=== PATIENT | female | born 1950 | race Caucasian/White ===

== ENCOUNTER 2017-10-23 21:03 | Emergency (ER) | payer OTHER ==
[~2017-10-23] VITALS: Ht 167.6 cm; Wt 71.3 kg
[2017-10-23 21:13] VITALS: BP 182/77; PULSE 74; RESP 16; TEMP 97.7; O2SAT 96
[2017-10-23 21:34] VITALS: BP 164/76
[2017-10-23] MEDS ORDERED: ORPHENADRINE INJ 60 MG/2 ML AMP IM ONE (22:15)
[2017-10-23] MEDS ORDERED: TRAM50 PO (22:21)
[2017-10-23] MEDS ORDERED: ROBA750T PO (22:21)
[2017-10-23] MEDS ORDERED: MOBI15TA PO (22:21)
--- NOTE | 2017-10-23 22:21 | PD ---
HPI Chief Complaint: Back/ Neck Pain or Injury Time Seen by Provider: 22:10 Travel History International Travel<30 days: No Contact w/Intl Traveler<30days: No Traveled to known affect area: No History of Present Illness HPI 66-year-old female complains of neck pain. Patient states that the neck pain started yesterday. Patient states that she woke up with the pain since yesterday morning. Patient states that the pain is sharp pain started in the left-sided neck with radiation to left shoulder pad area. Patient states that the pain is worse with neck movement. Patient denies any head or neck injury recently. Patient denies any fever chills. Patient denies any focal weakness or numbness of the extremity. Patient states that the pain goes partially relieved with Aleve. Patient denies any history of neck problem in the past. On a scale of 1-10 the pain is a 7. PFSH Past Medical History Medical History: Denies Significant Hx Diminished Hearing: No Immunizations Current: Yes Tetanus Vaccination: > 5 Years Influenza Vaccination: No ?: Not Past Surgical History Appendectomy: Yes Hysterectomy: Yes Social History Alcohol Use: Yes (1 DAILY) Tobacco Use: No Substance Use: No Allergies-Medications (Allergen,Severity, Reaction): Coded Allergies: No Known Allergies (Unverified , 10/23/17) Reported Meds & Prescriptions Reported Meds & Active Scripts Active Robaxin (Methocarbamol) 750 Mg Tab 750 Mg PO QID Mobic (Meloxicam) 15 Mg Tab 15 Mg PO DAILY Ultram (Tramadol HCl) 50 Mg Tab 50 Mg PO Q6H PRN Review of Systems General / Constitutional: No: Fever Eyes: No: Visual changes HENT: Positive: Neck Pain, No: Headaches Cardiovascular: No: Chest Pain or Discomfort Respiratory: No: Shortness of Breath Gastrointestinal: No: Abdominal Pain Genitourinary: No: Dysuria Musculoskeletal: No: Pain Skin: No Rash Neurologic: No: Weakness Psychiatric: No: Depression Endocrine: No: Polydipsia Hematologic/Lymphatic: No: Easy Bruising Physical Exam Narrative GENERAL: Well-nourished, well-developed patient. SKIN: Focused skin assessment warm/dry. HEAD: Normocephalic. EYES: No scleral icterus. No injection or drainage. NECK: Supple, trachea midline. No JVD or lymphadenopathy. Mild tenderness on palpation left paraspinal area cervical spine and left shoulder pad area. No shoulder joint tenderness. No meningismus. No rash noted. CARDIOVASCULAR: Regular rate and rhythm without murmurs, gallops, or rubs. RESPIRATORY: Breath sounds equal bilaterally. No accessory muscle use. GASTROINTESTINAL: Abdomen soft, non-tender, nondistended. MUSCULOSKELETAL: No cyanosis, or edema. BACK: Nontender without obvious deformity. No CVA tenderness. Neurologic exam normal. Data Data Last Documented VS Vital Signs Date Time Temp Pulse Resp B/P (MAP) Pulse Ox O2 Delivery O2 Flow Rate FiO2 10/23/17 21:34 164/76 (105) 10/23/17 21:13 97.7 74 16 96 Orders Orders Orphenadrine Inj (Norflex Inj) (10/23/17 22:15) Spine, Cervical - Ltd (Ap&Lat) (10/23/17 22:14) Tramadol (Ultram) (10/23/17 22:30) MDM Medical Decision Making Medical Screen Exam Complete: Yes Emergency Medical Condition: Yes Interpretation(s) X-ray cervical spine showed DJD changes. Differential Diagnosis Differential diagnosis including muscle spasm, neuralgia, neuropathy, cervical spine fracture, HNP. Narrative Course 66-year-old female with left-sided neck pain and left shoulder pad pain. Nontraumatic. Norflex 60 mg IM. Ultram 50 mg p.o. given. Diagnosis Primary Impression: Cervical strain, acute Qualified Codes: S16.1XXA - Strain of muscle, fascia and tendon at neck level , initial encounter Patient Instructions: General Instructions Additional Instructions: Take medication as needed for pain. Moist heat. Follow-up with personal physician. Return if worse, any rash. Med/Other Pt SpecificInfo: Prescription(s) given Scripts Methocarbamol (Robaxin) 750 Mg Tab 750 MG PO QID for Muscle Spasm, #40 TAB 0 Refills Prov: Yanick Grider MD 10/23/17 Meloxicam (Mobic) 15 Mg Tab 15 MG PO DAILY for Pain, #20 TAB 0 Refills Prov: Yanick Grider MD 10/23/17 Tramadol (Ultram) 50 Mg Tab 50 MG PO Q6H Y for PAIN, #12 TAB 0 Refills Prov: Yanick Grider MD 10/23/17 Disposition: 01 DISCHARGE HOME Condition: Stable Yanick Grider MD October 23, 2017 22:21
[2017-10-23] MEDS ORDERED: traMADol HCL 50 MG TAB PO ONE (22:30)
--- NOTE | 2017-10-23 22:48 | RADRPT ---
EXAM DATE/TIME: 10/23/2017 22:25 [facility] COMPARISON: No previous studies available for comparison. INDICATIONS : Cervical spine pain. No known injury. MEDICAL HISTORY : None. SURGICAL HISTORY : None. ENCOUNTER: Initial ACUITY: 1 day PAIN SCORE: 5/10 LOCATION: Bilateral neck FINDINGS: Two projection examination was performed. There is normal alignment and curvature of the vertebral b odies down to the level of C7. Moderate degenerative disc disease in the mid and lower cervical spine . No evidence of fracture or subluxation. Vertebral body height is maintained. The disc spaces are maintained. The prevertebral soft tissues are of normal thickness. The atlanto-axial articulation i s intact. CONCLUSION: 1. Moderate degenerative disc disease. No acute bony abnormalities. Archie Tejeda MD on October 23, 2017 at 22:46 Board Certified Radiologist. This report was verified electronically.
== END 2017-10-23 22:56 | disposition home or self-care (01) ==
LOC: PHEFT 21:03
DX: S16.1XXA Strain of muscle, fascia and tendon at neck level, initial encounter (principal); M50.320 Other cervical disc degeneration, mid-cervical region, unspecified level; X58.XXXA Exposure to other specified factors, initial encounter
CPT/HCPCS: 72040; 96372; 99283; J2360